=== PATIENT | female | born 1960 | race Caucasian/White ===

== ENCOUNTER 2018-01-08 18:18 | Emergency (ER) | payer SELFPAY ==
[~2018-01-08] VITALS: Ht 165.1 cm; Wt 68.0 kg
[2018-01-08 18:45] VITALS: BP 138/78
[2018-01-08] MEDS ORDERED: HYDR25TA PO (18:45)
--- NOTE | 2018-01-08 18:45 | PHYS DOC ---
Past History Past Medical History: Diabetes, Hypothyroid Adult General Chief Complaint Chief Complaint: ALLERGIC REACTION HPI HPI Patient is a 57-year-old female who presents to the emergency department for evaluation. She states that for the past 4-5 days she's had a burning sensation in the skin of her face, neck, and arms. She states that this began after she was walking for about a half hour outside in the cold this past Friday, with a temperature was in the teens. She states she was wearing a coat and a scar from her face. She denies any difficulty breathing or shortness of breath or wheezing. She states that she is having "an allergic reaction". She has not had any urticaria, nor has she taken any medication. There are no alleviating or exacerbating factors to her symptoms. Review of Systems Review of Systems Constitutional: Denies fever or chills [] Eyes: Denies change in visual acuity, redness, or eye pain [] HENT: Denies nasal congestion or sore throat [] Respiratory: Denies cough or shortness of breath [] : Denies dysuria or hematuria [] Musculoskeletal: Denies back pain or joint pain [] Integument: Denies discrete rash or skin lesions, does have some erythema in the affected areas, without warmth [] Neurologic: Denies headache, focal weakness or sensory changes [] Endocrine: Denies polyuria or polydipsia [] All other systems were reviewed and found to be within normal limits, except as documented in this note. Allergies Allergies Allergies Coded Allergies Type Severity Reaction Last Updated Verified codeine Allergy Unknown 01/08/18 Yes Physical Exam Physical Exam PHYSICAL EXAM: CONSTITUTIONAL: Well developed, well nourished HEAD: normocephalic, atraumatic EENT: PERRL, EOMI. Conjunctivae normal color, sclerae non-icteric; moist mucous membranes. NECK: Supple, non-tender; no meningismus. LUNGS: Lungs CTA, breathing even and unlabored. Normal air movement. HEART: Regular rate and rhythm, no murmur CHEST: No deformity; non-tender ABDOMEN: The abdomen is soft, and non-tender, no masses or bruits. EXTREM: Normal ROM; no deformity, no calf tenderness. Normal pulses palpable in all extremities. There is no pedal edema. SKIN: No rash; no diaphoresis. There is mild hyperemia to the skin of the face, in the upper extremities and neck. There are no urticarial lesions, no discrete rash. There is no tenderness to palpation. NEURO: Alert; normal speech and cognition; CN's grossly intact; strength grossly intact without focal deficit. BACK: No CVA TTP. EKG EKG [] Radiology/Procedures Radiology/Procedures [] Course & Med Decision Making Course & Med Decision Making The patient's condition remained stable. I do not suspect that she has an acute allergic reaction. Do suspect that she might have minor skin irritation or minor skin burn due to this extreme cold. I did discuss the use of skin more sterilizes, and the need for close PCP follow-up. I do believe that the risk of steroids, given the patient's diabetes, out ways the benefit. I discussed return precautions in detail. Dragon Disclaimer Dragon Disclaimer This electronic medical record was generated, in whole or in part, using a voice recognition dictation system. Departure Departure: Impression: Primary Impression: Dermatitis Disposition: 01 HOME, SELF-CARE Condition: STABLE Referrals: PCP,NO (PCP) Patient Instructions: Contact Dermatitis Scripts Hydroxyzine Hcl (HYDROXYZINE HCL) 25 Mg Tablet 1 TAB PO TID for itching, #30 TAB Prov: ALIDA JONES MD 01/08/18 ALIDA JONES MD Jan 08, 2018 18:45
== END 2018-01-08 18:46 | disposition home or self-care (01) ==
LOC: ER 18:18
DX: L30.9 Dermatitis, unspecified (principal); E11.9 Type 2 diabetes mellitus without complications; E03.9 Hypothyroidism, unspecified; Z88.5 Allergy status to narcotic agent
CPT/HCPCS: 99283

== ENCOUNTER 2018-12-25 23:27 | Inpatient (IN) | payer SELFPAY ==
[~2018-12-25] VITALS: Ht 165.1 cm; Wt 67.7 kg
[~2018-12-25 23:27] MED LIST: HYDR25TA PO
[2018-12-25] MEDS ORDERED: ASPIRIN 81 MG TAB.CHEW PO ONE (23:45)
--- NOTE | 2018-12-25 23:51 | PHYS DOC ---
Past History Past Medical History: Diabetes, Hypothyroid Past Surgical History: Cholecystectomy, Hysterectomy Alcohol Use: Rarely Drug Use: Other Adult General HPI HPI Patient is a 58-year-old female presents complaining of chest pain that started approximately 6:00 this evening while she was at work. 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 She reports that there is both a respirophasic as well as an exertional component to the chest discomfort. She notes decreased exercise tolerance tonight and had to stop to catch her breath several times while working. She denies any lower extremity swelling. No PE risk factors such as t rauma, stasis, or known hypercoagulable state. She does not have a known history of cardiac disease, however there is a significant family history with her father having a heart attack at an age less than 50 years old. She is also a diabetic patient. No radiation of the discomfort except to her back. No nausea or vomiting or diaphoresis.[] Review of Systems Review of Systems Constitutional: Denies fever or chills [] Eyes: Denies change in visual acuity, redness, or eye pain [] HENT: Denies nasal congestion or sore throat [] Respiratory: Denies cough or shortness of breath [] Cardiovascular: No additional information not addressed in HPI [] GI: Denies abdominal pain, nausea, vomiting, bloody stools or diarrhea [] : Denies dysuria or hematuria [] Musculoskeletal: Denies back pain or joint pain [] Integument: Denies rash or skin lesions [] Neurologic: Denies headache, focal weakness or sensory changes [] Endocrine: Denies polyuria or polydipsia [] All other systems were reviewed and found to be within normal limits, except as documented in this note. Allergies Allergies Allergies Coded Allergies Type Severity Reaction Last Updated Verified codeine Allergy Unknown 01/08/18 Yes Physical Exam Physical Exam Constitutional: Well developed, well nourished, no acute distress, non-toxic appearance. [] HENT: Normocephalic, atraumatic, bilateral external ears normal, oropharynx moist, no oral exudates, nose normal. [] Eyes: PERRLA, EOMI, conjunctiva normal, no discharge. [] Neck: Normal range of motion, no tenderness, supple, no stridor. [] Cardiovascular:Heart rate regular rhythm, no murmur [] Lungs & Thorax: Bilateral breath sounds clear to auscultation [] Abdomen: Bowel sounds normal, soft, no tenderness, no masses, no pulsatile masses. [] Skin: Warm, dry, no erythema, no rash. [] Back: No tenderness, no CVA tenderness. [] Extremities: No tenderness, no cyanosis, no clubbing, ROM intact, no edema. [] Neurologic: Alert and oriented X 3, normal motor function, normal sensory function, no focal deficits noted. [] Psychologic: Affect normal, judgement normal, mood normal. [] Current Patient Data Lab Results Laboratory Tests Test 12/25/18 23:40 Glucose (Fingerstick) 120 mg/dL (70-99) H EKG EKG EKG shows a sinus rhythm at 75 bpm, normal axis, QTC of 413 ms, no ST elevations. No old EKG available for comparison. Interpreted by me at 2344[] Radiology/Procedures Radiology/Procedures Chest x-ray shows no infiltrate, no effusion, no widened mediastinum, no pneumothorax[] Course & Med Decision Making Course & Med Decision Making Pertinent Labs and Imaging studies reviewed. (See chart for details) ED course: Patient arrived, was placed in bed, and tolerated exam well. IV access was established, laboratory tests were obtained, along with radiographic imaging. After the return of the initial labs, it was noted that her bicarbonate was low so looking for a trigger for this given that her glucose was good for a diabetic patient. Patient had an ABG obtained that showed evidence of hyperventilation based on elevated pH and low PCO2. Findings and plan were discussed with patient and family who voiced understanding. All questions were answered. She was admitted in improved condition. Medical decision makin-year-old female with chest discomfort concerning for possible cardiac etiology. Her initial set of cardiac enzymes were negative. She is being admitted for further evaluation and treatment given that she is a d iabetic patient with a significant family history. There is no evidence of pneumonia, pneumothorax, pulmonary embolism, dissecting thoracic aneurysm, nor esophageal rupture. She is noted to be hypomagnesemic and did receive replacement for this. Elevated lactate is noted and patient is receiving IV fluids for this.[] Dragon Disclaimer Dragon Disclaimer This electronic medical record was generated, in whole or in part, using a voice recognition dictation system. Departure Departure: Impression: Primary Impression: Chest pain Additional Impressions: Diabetes mellitus Hypomagnesemia Elevated lactic acid level Disposition: ADMITTED INPATIENT Admitting Physician: Maira Nix Condition: IMPROVED Referrals: PCP,NO (PCP) HEART Score for Chest Pain PTs The HEART Score for CP Pts HEART Score for Chest Pain: HEART Score for Chest Pain Response (Comments) Value History Moderately Suspicious 1 ECG Normal 0 Age >45 - < 65 1 Risk Factors 1 or 2 Risk Factors 1 Troponin < Normal Limit 0 Total 3 Risk Factors: Risk Factors: DM, Current or recent (<one month) smoker, HTN, HLP, family history of CAD, obesity. 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
[2018-12-26] MEDS: NITROGLYCERIN SUBLINGUAL 0.4 MG BOTTLE OF 25. SL PRN ×2 (00:15)
[2018-12-26] MEDS ORDERED: MORPHINE SULFATE 2 MG/ML DISP.SYRIN. IV/SQ PRN (00:30)
[2018-12-26 00:33] LABS: BASO # 0.1 x10^3/uL (0.0-0.2); BASO % 1 % (0-3); EOS % 0 % (0-3); HEMATOCRIT 41.2 % (36.0-47.0); HEMOGLOBIN 13.8 g/dL (12.0-15.5); LYMPH % 37 % (24-48); MEAN CORPUSCULAR HEMOGLOBIN 31 pg (25-35); MEAN CORPUSCULAR HGB CONC 34 g/dL (31-37); MEAN CORPUSCULAR VOLUME 91 fL (79-100); MONO # 0.7 x10^3/uL (0.0-1.1); MONO % 7 % (0-9); NEUT # 5.9 x10^3uL (1.8-7.7); NEUT % 55 % (31-73); PLATELET COUNT 261 x10^3/uL (140-400); RED BLOOD COUNT 4.51 x10^6/uL (3.50-5.40); RED CELL DISTRIBUTION WIDTH 12.8 % (11.5-14.5); WHITE BLOOD COUNT 10.7 x10^3/uL (4.0-11.0)
[2018-12-26 00:34] LABS: ALBUMIN 4.1 g/dL (3.4-5.0); ALBUMIN/GLOBULIN RATIO 1.1 (1.0-1.7); CALCIUM 9.6 mg/dL (8.5-10.1); CREATININE 1.1 mg/dL (0.6-1.0); MAGNESIUM 1.3 mg/dL (1.8-2.4); POTASSIUM 3.7 mmol/L (3.5-5.1); TOTAL BILIRUBIN 0.4 mg/dL (0.2-1.0); TOTAL PROTEIN 7.9 g/dL (6.4-8.2)
[2018-12-26] MEDS ORDERED: IV NORMAL SALINE 1,000ML 1,000 ML IV ONE ×3 (00:45→02:15)
[2018-12-26] MEDS ORDERED: MAGNESIUM SULFATE 2GM 50 ML IV ONE (00:45)
[2018-12-26 00:53] LABS: BGAS PH 7.55 (7.35-7.45)
[2018-12-26] MEDS ORDERED: ACETAMINOPHEN 325 MG TABLET PO PRN (01:00)
[2018-12-26] MEDS ORDERED: NITROGLYCERIN SUBLINGUAL 0.4 MG BOTTLE OF 25. SL PRN (01:00)
[2018-12-26] MEDS ORDERED: ONDANSETRON PF 4 MG/2 ML VIAL. IV PRN (01:00)
[2018-12-26] MEDS: MORPHINE SULFATE 2 MG/ML DISP.SYRIN. IV PRN ×2 (01:00→20:48)
--- NOTE | 2018-12-26 01:50 | RAD ---
PORTABLE CHEST 1V History: Chest pain Comparison: None. Findings: No consolidation or pleural effusion. Normal heart size. No pneumothorax. Bilateral acromioclavicular DJD. Impression: 1. No acute cardiopulmonary process. Electronically signed by: Breezy Mckinley DO (12/26/2018 1:48 AM) [facility]
[2018-12-26 01:57] LABS: BILIRUBIN,URINE NEG (NEG); CLARITY,URINE HAZY; COLOR,URINE AMBER; GLUCOSE,URINE NEG (NEG)
[2018-12-26 01:58] LABS: BACTERIA,URINE MOD /HPF (0-FEW); HYALINE CASTS, URINE OCC /HPF; NITRITE,URINE NEG (NEG); SQUAMOUS EPITHELIAL CELL,UR FEW /LPF; UROBILINOGEN,URINE 0.2 mg/dL (0.2 mg/dL)
[2018-12-26 01:59] LABS: BARBITURATES NEG (NEG); BENZODIAZEPINES NEG (NEG); CANNABINOIDS NEG (NEG); COCAINE NEG (NEG); METHADONE NEG (NEG); OPIATES POS (NEG); PHENCYCLIDINE NEG (NEG)
[2018-12-26 02:00] LABS: AMPHETAMINE/METHAMPHETAMINE NEG (NEG)
[2018-12-26] MEDS ORDERED: [UNRECOGNIZED DRUG - OTHER] PO (02:10)
[2018-12-26] MEDS ORDERED: BUPR300T3 PO (02:10)
[2018-12-26] MEDS ORDERED: TRAZ150T49 PO (02:10)
[2018-12-26] MEDS ORDERED: LEVO75TA5 PO (02:10)
[2018-12-26] MEDS ORDERED: GABA-586 PO (02:10)
[2018-12-26] MEDS ORDERED: METF10007 PO (02:10)
[2018-12-26] MEDS ORDERED: SERT100T PO (02:10)
--- NOTE | 2018-12-26 03:00 | NUR ---
The patient, JONAS CASTELLANOS, 58 y/o, F admitted by NED ROMERO MD, was given written information regarding hospital policies, unit procedures and contact persons. Valuables were checked and logged. Call light in place. Will continue to monitor.
[2018-12-26 03:30] VITALS: BP 127/70
[2018-12-26 07:34] VITALS: BP 122/70
[2018-12-26 11:55] VITALS: BP 116/60
[2018-12-26 14:54] VITALS: BP 112/78
--- NOTE | 2018-12-26 15:45 | PDOC2 ---
CARDIAC CONSULT DATE OF CONSULT Date Of Consult DATE: 12/26/18 TIME: 15:45 REASON FOR CONSULT Reason for Consult Chest pain REFERRING PHYSICIAN Referring Physician Dr. Nix SOURCE Source: Chart review, Patient HPI History of Present Illness The patient is a 58-year-old female who was admitted through the emergency room with episodes of chest pressure and some mild increasing dyspnea on exertion. Patient has no history of coronary disease but does have a history of diabetes and hypothyroidism. Her initial EKG showed no ischemic changes. Chest x-ray showed no acute processes. She is been altered monitored overnight and is feeling better today. PAST MEDICAL HISTORY Cardiovascular: HTN Endocrine: Diabetes, Hypothyroidism PAST SURGICAL HISTORY Past Surgical History: Cholecystectomy, Hysterectomy, Tonsillectomy FAMILY HISTORY Family History: Heart Disease SOCIAL HISTORY Smoke: Quit ALCOHOL: rare CURRENT MEDICATIONS Current Medications Current Medications Aspirin (Children'S Aspirin) 324 mg 1X ONCE PO Last administered on 12/26/18at 00:01; Start 12/25/18 at 23:45; Stop 12/25/18 at 23:49; Status DC Nitroglycerin (Nitrostat) 0.4 mg PRN Q5MIN PRN SL CP RATING > 1/10 Last administered on 12/26/18at 00:15; Start 12/25/18 at 23:45; Stop 12/26/18 at 02:03; Status DC Morphine Sulfate (Morphine 2mg Syringe) 2 mg PRN Q15MIN PRN IV/SQ PAIN GREATER THAN 3/10 Last administered on 12/26/18at 00:35; Start 12/26/18 at 00:30; Stop 12/27/18 at 00:29 Sodium Chloride 1,000 ml @ 1,000 mls/hr 1X ONCE IV Last administered on 12/26/18at 00:51; Start 12/26/18 at 00:45; Stop 12/26/18 at 01:45; Status DC Magnesium Sulfate 50 ml @ 25 mls/hr 1X ONCE IV Last administered on 12/26/18at 00:51; Start 12/26/18 at 00:45; Stop 12/26/18 at 02:45; Status DC Ondansetron HCl (Zofran) 4 mg PRN Q4HRS PRN IV NAUSEA/VOMITING; Start 12/26/18 at 01:00; Stop 12/27/18 at 00:59 Morphine Sulfate (Morphine 2mg Syringe) 2 mg PRN Q2HR PRN IV PAIN Last administered on 12/26/18at 01:00; Start 12/26/18 at 01:00; Stop 12/27/18 at 00:59 Acetaminophen (Tylenol) 650 mg PRN Q4HRS PRN PO FEVER; Start 12/26/18 at 01:00; Stop 12/27/18 at 00:59 Nitroglycerin (Nitrostat) 0.4 mg PRN Q5MIN PRN SL CHEST PAIN; Start 12/26/18 at 01:00; Stop 12/27/18 at 00:59 Sodium Chloride 1,000 ml @ 125 mls/hr 1X ONCE IV Last administered on 12/26/18at 02:37; Start 12/26/18 at 01:30; Stop 12/26/18 at 09:29; Status DC Sodium Chloride 1,000 ml @ 2,000 mls/hr 1X ONCE IV Last administered on 12/26/18at 02:15; Start 12/26/18 at 02:15; Stop 12/26/18 at 02:55; Status DC Active Scripts Active Reported [women's multivit] 1 Cap PO DAILY Trazodone Hcl 150 Mg Tablet 150 Mg PO QHS Zoloft (Sertraline Hcl) 100 Mg Tablet 200 Mg PO QHS Levothyroxine Sodium 75 Mcg Tablet 75 Mcg PO DAILYAC Gabapentin (Gabapentin) 300 Mg Capsule 300 Mg PO QHS Wellbutrin Xl (Bupropion Hcl) 300 Mg Tab.er.24h 300 Mg PO DAILY Metformin Hcl 1,000 Mg Tablet 1,000 Mg PO BID ALLERGIES Allergies: Coded Allergies: codeine (Verified Allergy, Unknown, 01/08/18) ROS Respiratory: YES: SOB with excertion Cardiovascular: yes: Chest Pain PHYSICAL EXAM General: No acute distress HEENT: Atraumatic Lungs: Other (slightly decreased breath sounds) Heart: Regular rate Abdomen: Normal bowel sounds VITALS Vital Signs Vital Signs Date Time Temp Pulse Resp B/P (MAP) Pulse Ox O2 Delivery O2 Flow Rate FiO2 12/26/18 14:54 98.8 67 16 112/78 (89) 96 Room Air LABS LABS Laboratory Tests Test 12/25/18 23:40 12/25/18 23:59 12/26/18 00:40 12/26/18 04:20 Glucose (Fingerstick) 120 mg/dL (70-99) White Blood Count 10.7 x10^3/uL (4.0-11.0) Red Blood Count 4.51 x10^6/uL (3.50-5.40) Hemoglobin 13.8 g/dL (12.0-15.5) Hematocrit 41.2 % (36.0-47.0) Mean Corpuscular Volume 91 fL (79-100) Mean Corpuscular Hemoglobin 31 pg (25-35) Mean Corpuscular Hemoglobin Concent 34 g/dL (31-37) Red Cell Distribution Width 12.8 % (11.5-14.5) Platelet Count 261 x10^3/uL (140-400) Neutrophils (%) (Auto) 55 % (31-73) Lymphocytes (%) (Auto) 37 % (24-48) Monocytes (%) (Auto) 7 % (0-9) Eosinophils (%) (Auto) 0 % (0-3) Basophils (%) (Auto) 1 % (0-3) Neutrophils # (Auto) 5.9 x10^3uL (1.8-7.7) Lymphocytes # (Auto) 4.0 x10^3/uL (1.0-4.8) Monocytes # (Auto) 0.7 x10^3/uL (0.0-1.1) Eosinophils # (Auto) 0.0 x10^3/uL (0.0-0.7) Basophils # (Auto) 0.1 x10^3/uL (0.0-0.2) Prothrombin Time 10.0 SEC (9.4-11.4) Prothromb Time International Ratio 1.0 (0.9-1.1) Activated Partial Thromboplast Time 24 SEC (23-33) D-Dimer (Lynnette) 0.36 mg/L (0.00-0.50) Urine Collection Type Void Urine Color Alyse Urine Clarity Hazy Urine pH 5.5 Urine Specific [place] >=1.030 Urine Protein Neg (NEG-TRACE) Urine Glucose (UA) Neg mg/dL (NEG) Urine Ketones (Stick) Trace mg/dL (NEG) Urine Blood Mod (NEG) Urine Nitrite Neg (NEG) Urine Bilirubin Neg (NEG) Urine Urobilinogen Dipstick 0.2 mg/dL (0.2 mg/dL) Urine Leukocyte Esterase Trace (NEG) Urine RBC 6-10 /HPF (0-2) Urine WBC 1-4 /HPF (0-4) Urine Squamous Epithelial Cells Few /LPF Urine Bacteria Mod /HPF (0-FEW) Urine Hyaline Casts Occ /HPF Urine Mucus Mod /LPF Sodium Level 140 mmol/L (136-145) Potassium Level 3.7 mmol/L (3.5-5.1) Chloride Level 102 mmol/L (98-107) Carbon Dioxide Level 17 mmol/L (21-32) Anion Gap 21 (6-14) Blood Urea Nitrogen 22 mg/dL (7-20) Creatinine 1.1 mg/dL (0.6-1.0) Estimated GFR (Cockcroft-Gault) 51.0 BUN/Creatinine Ratio 20 (6-20) Glucose Level 115 mg/dL (70-99) Calcium Level 9.6 mg/dL (8.5-10.1) Magnesium Level 1.3 mg/dL (1.8-2.4) Total Bilirubin 0.4 mg/dL (0.2-1.0) Aspartate Amino Transf (AST/SGOT) 19 U/L (15-37) Alanine Aminotransferase (ALT/SGPT) 20 U/L (14-59) Alkaline Phosphatase 74 U/L (46-116) Troponin I Quantitative < 0.017 ng/mL (0-0.055) GP-Fco-L-Type Natriuretic Peptide 58 pg/mL (0-124) Total Protein 7.9 g/dL (6.4-8.2) Albumin 4.1 g/dL (3.4-5.0) Albumin/Globulin Ratio 1.1 (1.0-1.7) Lipase 252 U/L (73-393) Thyroid Stimulating Hormone (TSH) 5.758 uIU/mL (0.358-3.740) Urine Opiates Screen Pos (NEG) Urine Methadone Screen Neg (NEG) Urine Barbiturates Neg (NEG) Urine Phencyclidine Screen Neg (NEG) Urine Amphetamine/Methamphetamine Neg (NEG) Urine Benzodiazepines Screen Neg (NEG) Urine Cocaine Screen Neg (NEG) Urine Cannabinoids Screen Neg (NEG) Urine Ethyl Alcohol Neg (NEG) Blood Gas pH 7.55 (7.35-7.45) Blood Gas PCO2 19 mmHg (35-45) Blood Gas PO2 116 mmHg (80-100) Blood Gas HCO3 16 mmol/L (22-26) Arterial Bld O2 Saturation (Calc) 99 % (92-99) FiO2 21 % Lactic Acid Level 3.3 mmol/L (0.4-2.0) 2.6 mmol/L (0.4-2.0) Test 12/26/18 07:31 12/26/18 07:35 12/26/18 11:52 Glucose (Fingerstick) 116 mg/dL (70-99) 121 mg/dL (70-99) Troponin I Quantitative < 0.017 ng/mL (0-0.055) IMAGES IMAGES Chest x-ray shows no acute processes. EKG EKG EKG shows a sinus rhythm with no ischemic changes. ASSESSMENT/PLAN Assessment/Plan 1. Chest pain. Patient is feeling better today. EKG shows no ischemic changes. Troponin has been normal. We'll increase activities. Complete rule out. Would consider outpatient stress testing if the patient remains stable. 2. Borderline hypertension. Under better control. Continuing present treatments. 3. Diabetes mellitus. Continue baseline medications as per the primary service. 4. Mildly elevated lactic acid. Uncertain etiology. Would monitor. Thank you for allowing us to participate in the care of your patient. VLAD TREVIÑO MD Dec 26, 2018 15:45
[2018-12-26] MEDS: metFORMIN 500 MG TABLET PO SCH (16:36)
[2018-12-26 18:08] VITALS: BP 148/80
--- NOTE | 2018-12-26 19:12 | HP ---
ADMIT DATE: 12/26/2018 HISTORY OF PRESENT ILLNESS: The patient is a 58-year-old female patient who came to the Emergency Room complaining of chest pain that started approximately around 6:00 yesterday evening when she was at work. 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 She reports ____ as well as an exertional component to her chest discomfort. She notes decreased exercise tolerance tonight and had to stop to catch her breath several times while working. She denied any lower extremity swelling, no PE risk factors such as trauma, stasis, or known hypercoagulable state. She is not known to have history of cardiac disease. However, there is a significant family history and that her father has a heart attack when he was less than 50 years old. She is also diabetic and was a smoker before. Denied any radiation. She denied any nausea, vomiting or diaphoresis. She was evaluated in the Emergency Room and has had lab work. The first troponin was less than 0.017. Her EKG showed that she was in sinus rhythm at 75 beats per minute with normal axis, corrected QT interval of 113 milliseconds, no ST segment elevation. Her chest x-ray showed no consolidation or pleural effusion, normal heart size, no pneumothorax. She has bilateral acromioclavicular degenerative joint disease. The patient was admitted to do 2 more sets of cardiac enzyme to check her fasting lipid profile and to consult the cardiology team. PAST MEDICAL HISTORY: Significant for type 2 diabetes mellitus, hypothyroidism, hyperlipidemia. She also is known to have irritable bowel syndrome and obstructive sleep apnea. She apparently intentionally lost about 80 pounds and her hypertension and obstructive sleep apnea had resolved. She did have an episode of spontaneous pneumothorax in 2002. PAST SURGICAL HISTORY: Significant for tonsillectomy, total abdominal hysterectomy, bilateral salpingo-oophorectomy, cholecystectomy, and colonoscopy. ALLERGIES: SHE IS ALLERGIC TO CODEINE. MEDICATIONS: She is currently on gabapentin 300 mg at bedtime, Wellbutrin-XL 300 mg daily, sertraline 200 mg at bedtime, trazodone 150 mg at bedtime, metformin 1000 mg twice a day, levothyroxine sodium 75 mcg once a day, women's multivitamin 1 tablet once a day. FAMILY HISTORY: She has 2 brothers, both younger, one has skin cancer, one is drug addict. Her father is still alive at the age of 81 and has had a heart attack and he was in his early 50s. He has coronary artery bypass graft surgery, permanent pacemaker, skin cancer, prostate cancer and stage 3 chronic kidney disease. Mother is still alive at age of 78 and has hypertension and diabetes. SOCIAL HISTORY: She is , has 2 sons and 1 daughter. She quit smoking in 1986. She drinks alcohol occasionally and she smokes marijuana also occasionally. 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 REVIEW OF SYSTEMS: The patient denied any blurring of vision, cataract, glaucoma or macular degeneration. Denied any earache, tinnitus or sensorineural deafness. Denied any nosebleeds, stuffy nose or postnasal drip. Denied any sore throat, sore tongue, toothache, hoarseness of voice or difficulty swallowing. Denied any nausea, vomiting, diarrhea or constipation. Denied any hematemesis, melena or hematochezia. Denied any dysuria, frequency or hematuria. He did complain of chest pain. Denied any dizziness, lightheadedness, or vertigo. PHYSICAL EXAMINATION: GENERAL: On arrival to the Emergency Room, she was somewhat pale, but no jaundice, cyanosis or thyromegaly. No jugular venous distention. No limb edema. She was tachypneic. VITAL SIGNS: Her heart rate was 65, blood pressure was 144/81, temperature was 97.6, respiratory rate was 32 and oxygen saturation was 98% on room air. HEAD, EYES, EARS, NOSE AND THROAT: Showed normocephalic, atraumatic. NECK: Supple. HEART: Showed normal first and second heart sounds. No gallop or murmur. CHEST: Clear to auscultation. No crepitation or rhonchi. ABDOMEN: Distended, soft, nontender. NEUROLOGIC: She was awake, alert, responding appropriately. All her cranial nerves intact. EXTREMITIES: She moves extremities without difficulty. She ambulates without assistance or assistive devices. LABORATORY WORK: Showed a white cell count of 10,700, hemoglobin 13.8, hematocrit 41, MCV 91, and platelet count 261,000. Her blood gases showed a pH of 7.55, pCO2 of 19, pO2 of 116, bicarbonate was 16, and oxygen saturation was 99% on FiO2 of 21%. Her prothrombin time, INR, aPTT and D-dimer was 0.36. There are all within normal limits. Her chemistry showed a serum sodium 184, potassium 3.7, chloride 102, bicarbonate 17, anion gap of 21, BUN of 22, creatinine 1.1, estimated GFR was 51. Glucose 115, calcium was 9.6, magnesium was 1.3. Total bilirubin, AST, ALT, alkaline phosphatase were normal. Total protein was 7.9, albumin was 4.1. Her serum lipase was 152 and TSH was slightly elevated at 5.758. Urinalysis showed the urine was gaby, hazy with a pH of 5.5, specific gravity of 1.030. The urine was negative for protein, glucose. There was a trace of ketones, moderate amount of blood, negative for nitrite and trace leukocyte esterase, 6-10 rbc's, 1-4 wbc's, and very moderate amount of bacteria. Her toxic screen was positive for opiates. Her chest x-ray showed no consolidation or pleural effusion, normal heart size, no pneumothorax. Bilateral acromioclavicular degenerative joint disease. PLAN: Plan is to do 2 more sets of cardiac enzyme, check her fasting lipid profile and consult the cardiology team. NED ROMERO MD DR: THOMAS/maldonado JOB#: [id number] / [id number]
[2018-12-26] MEDS ORDERED: SERTRALINE 100 MG TABLET. PO SCH (21:00)
[2018-12-26] MEDS ORDERED: GABAPENTIN 300 MG CAPSULE. PO SCH (21:00)
[2018-12-26] MEDS ORDERED: traZODone 150 MG TABLET. PO SCH (21:00)
[2018-12-26] MEDS ORDERED: diphenhydrAMINE HCL 25 MG CAPSULE PO PRN (22:45)
[2018-12-26 23:00] VITALS: BP 127/67
[2018-12-27] MEDS ORDERED: LEVOTHYROXINE 75 MCG TABLET PO SCH (06:00)
[2018-12-27 06:27] VITALS: BP 114/64
[2018-12-27 07:03] LABS: ALBUMIN 3.3 g/dL (3.4-5.0); CALCIUM 8.3 mg/dL (8.5-10.1); CREATININE 0.8 mg/dL (0.6-1.0); GFR 73.7; MAGNESIUM 1.5 mg/dL (1.8-2.4); TOTAL BILIRUBIN 0.3 mg/dL (0.2-1.0); TOTAL PROTEIN 6.5 g/dL (6.4-8.2)
[2018-12-27] MEDS ORDERED: buPROPion XL 300 MG TAB.ER.24H. PO SCH (09:00)
[2018-12-27] MEDS ORDERED: MULTIVITAMIN with MINERAL TABLET. PO SCH (09:00)
[2018-12-27] MEDS: metFORMIN 500 MG TABLET PO SCH (09:23)
[2018-12-27 11:15] VITALS: BP 118/68
--- NOTE | 2018-12-27 12:26 | DS ---
DATE OF DISCHARGE: HOSPITAL COURSE: The patient is a 58-year-old female patient who came with complaint of chest pain associated with shortness of breath, she has also some exertional component to chest pain. Given the fact that she has multiple risk factors for coronary artery disease, the patient was admitted to rule out myocardial infarction and to consult the cardiology team. She in fact has 3 sets of cardiac enzymes, all of them were less than 0.017. Her fasting lipid profile showed his serum triglycerides of 172, total cholesterol 191, LDL was 117, VLDL was 34, and HDL cholesterol was 40 and the ratio was 4. Her TSH was slightly elevated at 5.758. As the patient was ruled out myocardial infarction, the patient was discharged home for a stress test as an outpatient. When I examined her this morning, she was resting slightly propped up in bed, in no apparent distress. Denied any further episode of chest pressure or chest pain, denied any shortness of breath. PHYSICAL EXAMINATION: GENERAL: When I examined her, she was pale, somewhat cachectic, but no jaundice, cyanosis or thyromegaly. No jugular venous distention. No limb edema. VITAL SIGNS: Her heart rate was 58, blood pressure was 118/68, temperature was 98.5, respiratory rate was 18 and oxygen saturation was 95%. HEAD, EYES, EARS, NOSE AND THROAT: Showed normocephalic, atraumatic. NECK: Supple. HEART: Showed normal first and second heart sounds. No gallop, rub or murmur. CHEST: Clear to auscultation. No crepitation or rhonchi. ABDOMEN: Distended, soft, nontender. NEUROLOGIC: She is awake, alert, responding appropriately. All cranial nerves intact. She moves extremities without difficulty. LABORATORY DATA: Showed a white cell count of 10,700, hemoglobin 14, hematocrit 41, MCV 91, and platelet count 265,000. Her chemistry this morning showed a serum sodium of 145, potassium 4, chloride 109, bicarbonate 27, anion gap of 9, BUN 11, creatinine 0.8, estimated GFR was 73 mL per minute. Her glucose 103, calcium was 8.3, magnesium was 1.5. Total bilirubin, AST, ALT, alkaline phosphatase were normal. Total protein was 6.5, albumin was 3.3. Her serum triglycerides were 172, total cholesterol 191, LDL was 117, VLDL cholesterol was 34, HDL cholesterol was 40, the ratio was 4. ASSESSMENT: Atypical chest pain, myocardial infarction ruled out. Other medical problems include type 2 diabetes mellitus, hypothyroidism, hyperlipidemia, irritable bowel syndrome, obstructive sleep apnea. She has also hypomagnesemia, slightly elevated TSH. NED ROMERO MD DR: THOMAS/maldonado JOB#: [id number] / [id number]
--- NOTE | 2018-12-27 13:01 | NUR ---
Pt discharged home for self care. Pt iv discontinued with no complications. Pt given discharge follow up, and medication instructions, verbal understanding from pt received. Pt left unit in stable condition via ambulation accompanied by friend.
--- NOTE | 2018-12-28 14:42 | EKG ---
[address] [address] Test Date: 2018-12-25 Test Time: 23:41:32 Pat Name: JONAS CASTELLANOS Department: Room: Gender: F [employer]: : [id number] Requested By: YELITZA AVENDAÑO Order Number: [id number] Reading MD: Measurements Intervals [place] Rate: 75 P: 55 PA: 140 QRS: 41 QRSD: 82 T: 50 QT: 368 QTc: 413 Interpretive Statements SINUS RHYTHM NORMAL ECG RI6.01 No previous ECG available for comparison
== END 2018-12-27 12:45 | disposition home or self-care (01) | DRG 313 ==
LOC: ER 23:27 → ICU 12-26 01:30
PROVIDERS: ADMIT Internal Medicine; ATTEND Internal Medicine
DX: R07.89 Other chest pain (principal); E03.9 Hypothyroidism, unspecified; E11.9 Type 2 diabetes mellitus without complications; E83.42 Hypomagnesemia; E78.5 Hyperlipidemia, unspecified; K58.9 Irritable bowel syndrome, unspecified; G47.33 Obstructive sleep apnea (adult) (pediatric); F12.90 Cannabis use, unspecified, uncomplicated; M19.019 Primary osteoarthritis, unspecified shoulder; I10 Essential (primary) hypertension; Z90.710 Acquired absence of both cervix and uterus; Z90.49 Acquired absence of other specified parts of digestive tract; Z88.5 Allergy status to narcotic agent; Z83.3 Family history of diabetes mellitus; Z87.891 Personal history of nicotine dependence; Z82.49 Family history of ischemic heart disease and other diseases of the circulatory system; Z81.3 Family history of other psychoactive substance abuse and dependence; Z80.8 Family history of malignant neoplasm of other organs or systems; I25.2 Old myocardial infarction
CPT/HCPCS: 36415; 36600; 71045; 80053; 80061; 80307; 81001; 82803; 82947; 83605; 83690; 83735; 83880; 84443; 84484; 85025; 85379; 85610; 85730; 87086; 93005; 96365; 96366; 96375; J2270; J3475; Q0163; 99285-25; J7030